=== PATIENT | female | born 1950 | race Native Hawaiian/Other Pacific Islander ===

== ENCOUNTER 2021-06-14 12:32 | Outpatient (CLI) | payer OTHER ==
[~2021-06-14] VITALS: Ht 157.5 cm; Wt 63.0 kg
[2021-06-14 13:17] VITALS: BP 132/72; TEMP 98.9
== END 2021-06-14 19:38 | disposition home or self-care (01) ==
LOC: INF 12:32
PROVIDERS: ATTEND Nurse Practitioner Family
DX: Z23 Encounter for immunization (principal); U07.1 COVID-19
CPT/HCPCS: M0244

== ENCOUNTER 2021-12-16 10:22 | Outpatient (CLI) | payer OTHER | END 2021-12-16 19:01 | disposition home or self-care (01) | LOC: RAD 10:22 | PROVIDERS: ATTEND Nurse Practitioner Family | DX: M25.572 Pain in left ankle and joints of left foot (principal) ==

== ENCOUNTER 2022-06-09 14:01 | Outpatient (CLI) | payer OTHER ==
[2022-06-09 14:08] LABS: PLATELET COUNT 249 K/uL (152-353)
[2022-06-09 14:37] LABS: POTASSIUM 3.6 mmol/L (3.6-5.2)
== END 2022-06-09 19:36 | disposition home or self-care (01) ==
LOC: LAB 14:01
PROVIDERS: ATTEND Nurse Practitioner Family
DX: I10 Essential (primary) hypertension (principal); E78.49 Other hyperlipidemia; R53.82 Chronic fatigue, unspecified; R53.81 Other malaise; E55.9 Vitamin D deficiency, unspecified; Z79.899 Other long term (current) drug therapy; E53.8 Deficiency of other specified B group vitamins
CPT/HCPCS: 80053; 80061; 82306; 82607; 83036; 84439; 84443; 85027

== ENCOUNTER 2022-11-14 08:09 | Outpatient (CLI) | payer OTHER ==
[2022-11-14 08:38] LABS: POTASSIUM 3.9 mmol/L (3.6-5.2)
== END 2022-11-14 19:30 | disposition home or self-care (01) ==
LOC: LABW 08:09
PROVIDERS: ATTEND Nurse Practitioner Family
DX: E87.6 Hypokalemia (principal)
CPT/HCPCS: 36415; 80053